=== PATIENT | male | born 1955 | race Caucasian/White ===

== ENCOUNTER → 2017-05-12 | Outpatient (CLI) | payer OTHER | LOC: BMCIMAGING 10:47 | PROVIDERS: ATTEND Emergency Medicine | DX: S92.351A Displaced fracture of fifth metatarsal bone, right foot, initial encounter for closed fracture (principal) ==

== ENCOUNTER → 2017-06-03 | Outpatient (CLI) | payer OTHER | LOC: BMCIMAGING 14:40 | PROVIDERS: ATTEND Podiatrist Foot & Ankle Surgery | DX: S92.354D Nondisplaced fracture of fifth metatarsal bone, right foot, subsequent encounter for fracture with routine healing (principal) ==

== ENCOUNTER → 2017-07-02 | Outpatient (CLI) | payer OTHER | LOC: BMCIMAGING 08:24 | PROVIDERS: ATTEND Podiatrist Foot & Ankle Surgery | DX: S92.354D Nondisplaced fracture of fifth metatarsal bone, right foot, subsequent encounter for fracture with routine healing (principal) ==

== ENCOUNTER 2017-08-25 22:12 | Emergency (ER) | payer OTHER ==
[2017-08-25 22:16] VITALS: TEMP 97.5
--- NOTE | 2017-08-25 22:29 | CPEKG ---
Heart Rate: 75 RR Interval: 800 P-R Interval: 148 QRSD Interval: 98 QT Interval: 384 QTC Interval: 429 P [place]: 63 QRS [place]: -20 T Wave [place]: 19 EKG Severity - OTHERWISE NORMAL ECG - EKG Impression: SINUS RHYTHM EKG Impression: BORDERLINE LEFT AXIS DEVIATION Electronically Signed By: Stefania Go 27-Aug-2017 06:04:30
--- NOTE | 2017-08-25 22:39 | EDPHY ---
H & P Stated Complaint: N/V/& CP Time Seen by Provider: 08/25/17 22:28 HPI/ROS: HPI The patient presents with dizziness, now resolved. The patient today drink 1-2 glasses of water, less than he should have he believes. He did a hot water soak of his right foot which he broke 3 months ago. He went to a [employer] and drink wine. He then began to feel dizzy which he describes as a wobbling lightheadedness. He developed get what he describes as gas pains and then had diarrhea with abdominal cramping. He felt chills as well. He had 1 episode of vomiting. He denies any chest pain. He has been sick for the last 4 and half weeks with cough.. REVIEW OF SYSTEMS Constitutional: No fever, no chills. Eyes: No discharge. ENT: No sore throat. Cardiovascular: No chest pain, no palpitations. Respiratory: No cough, no shortness of breath. Gastrointestinal: No abdominal pain, no vomiting. Genitourinary: No hematuria. Musculoskeletal: No back pain. Skin: No rashes. Neurological: No headache. PMHx: Hyperlipidemia Soc Hx: Occasional alcohol use PHYSICAL General Appearance: Alert, no distress Eyes: Pupils equal and round no pallor or injection ENT, Mouth: Mucous membranes moist Respiratory: There are no retractions, lungs are clear to auscultation Cardiovascular: Regular rate and rhythm Gastrointestinal: Abdomen is soft and non-tender, no masses, bowel sounds normal Neurological: A&O, moves all extremities Skin: Warm and dry, no rashes Musculoskeletal: Neck is supple non tender Extremities: symmetrical, full range of motion Psychiatric: Patient is oriented X 3, there is no agitation Source: Patient Exam Limitations: No limitations - Personal History Current Tetanus/Diphtheria Vaccine: Unsure Current Tetanus Diphtheria and Acellular Pertussis (TDAP): Unsure - Medical/Surgical History Hx Asthma: No Hx Chronic Respiratory Disease: No Hx Diabetes: No Hx Cardiac Disease: Yes Hx Renal Disease: No Hx Cirrhosis: No Hx Alcoholism: No Hx HIV/AIDS: No Hx Splenectomy or Spleen Trauma: No Other PMH: hypothyroid BPH - Social History Smoking Status: Never smoked Constitutional: Initial Vital Signs Temperature (C) 36.4 C 08/25/17 22:14 Heart Rate 80 08/25/17 22:14 Respiratory Rate 16 08/25/17 22:14 Blood Pressure 144/87 H 08/25/17 22:14 O2 Sat (%) 97 08/25/17 22:14 O2 Delivery Mode Room Air Allergies/Adverse Reactions: amoxicillin [Amoxicillin] Allergy (Verified 03/15/16 16:21) Home Medications: Medication Instructions Recorded Melvin Thyroid 90 mg DAILY 03/15/16 CO Q-10 DAILY 03/15/16 Fish Oil 1,280 units 03/15/16 Multi-Vitamin Daily 03/15/16 RAPAFLO 8 mg PO 03/15/16 Welchol 625 mg PO BID 03/15/16 Medical Decision Making - Diagnostics EKG Interpretation: EKG: Complete interpretation has been separately recorded in the [facility] archive. Summary impression: Normal sinus rhythm Differential Diagnosis: 62-year-old male who is relatively healthy presents with an episode of dizziness , now resolved. This was associated with nausea, diarrhea, feeling of chills and chest congestion. He now feels fine. This is in the setting of limited p.o. intake during the day, drinking a glass of wine. Differential diagnosis includes vasovagal episode, viral gastroenteritis, toxin mediated enterocolitis, less likely ACS. In the emergency department, patient tolerated fluids without difficulty. He fell completely well without any ongoing symptoms. Labs were checked an EKG was unremarkable. He will be discharged home with instructions to insure adequate fluid intake. - Data Points Laboratory Results: Laboratory Results 08/25/17 22:28 08/25/17 22:28 Departure - Departure Disposition: Home, Routine, Self-Care Clinical Impression: Dizziness Condition: Good Instructions: Dehydration (ED), Dizziness (ED) Additional Instructions: Please make sure to drink plenty of fluids over the next several days. You should follow up with your primary care doctor in 1-2 days. Referrals: Juan José Vale MD [Primary Care Provider] - As per Instructions
[2017-08-25 23:13] LABS: PLATELET COUNT 176 10^3/uL (150-400)
[2017-08-26 00:01] VITALS: BP 130/80; PULSE 78; RESP 18; O2SAT 100
== END 2017-08-26 00:09 | disposition home or self-care (01) ==
DX: R42 Dizziness and giddiness (principal)